=== PATIENT | male | born 1985 | race Caucasian/White ===

== ENCOUNTER 2021-12-29 17:04 | Emergency (ER) | payer MEDICAID ==
[~2021-12-29] VITALS: Ht 170.2 cm; Wt 66.0 kg
[2021-12-29] MEDS ORDERED: IBUPROFEN 400MG TABLET PO ONE (18:00)
[2021-12-29] MEDS ORDERED: HYDROCODONE/ACETAMINOPHEN 5/325MG TABLET PO ONE (18:00)
[2021-12-29] MEDS ORDERED: IBUP-2028 MT (19:57)
[2021-12-29] MEDS ORDERED: HYDR-4001 MT (19:57)
[2021-12-29 20:39] VITALS: BP 110/69
== END 2021-12-29 20:42 | disposition home or self-care (01) ==
LOC: ER 17:04
DX: M54.50 Low back pain, unspecified (principal); Z98.890 Other specified postprocedural states; V18.0XXA Pedal cycle driver injured in noncollision transport accident in nontraffic accident, initial encounter; Y93.89 Activity, other specified; Y92.488 Other paved roadways as the place of occurrence of the external cause
CPT/HCPCS: 72131; 99284

== ENCOUNTER 2022-03-06 17:20 | Emergency (ER) | payer MEDICAID, OTHER ==
[~2022-03-06] VITALS: Ht 170.2 cm; Wt 66.0 kg
[~2022-03-06 17:20] MED LIST: HYDR-4001 MT; IBUP-2028 MT
[2022-03-06 22:48] VITALS: BP 121/77
== END 2022-03-06 22:50 | disposition home or self-care (01) ==
LOC: ER 17:20
DX: M53.3 Sacrococcygeal disorders, not elsewhere classified (principal); Z87.891 Personal history of nicotine dependence; Z98.890 Other specified postprocedural states
CPT/HCPCS: 72220; 99283